=== PATIENT | female | born 1960 | race Caucasian/White ===

== ENCOUNTER 2024-03-21 00:34 | Day surgery (SDC) | payer BC, SELFPAY ==
--- NOTE | 2024-03-16 12:19 | PM.IMHP ---
H&P: HPI History of Present Illness Date/Time: 03/16/24 12:19 Chief Complaint: UUI Narrative: Urge incontinence. Successful interstim trial Review of Systems Review of Systems: All systems reviewed & are unremarkable except as noted in HPI and below Meds Home Medications and Allergies Allergies Allergy/AdvReac Type Severity Reaction Status Date / Time No Known Allergies Allergy Unverified 03/06/18 12:35 Exam Narrative: NAD normal breathing A+O x3 Assessment and Plan Assessment and plan (1) Urge incontinence: Code(s): N39.41 - Urge incontinence Status: Acute Assessment and Plan: interStim implant
--- NOTE | ~2024-03-21 | XR_ITS ---
EXAMINATION: XR fluoroscopy no charge DATE: 03/21/2024 10:18 INDICATION: Phase 2 neurostimulator insertion TECHNIQUE: 3 fluoroscopic images of the central pelvis were obtained during procedure performed by Dr Luisa Murguia. Radiologist was not present for the imaging or procedure. The amount of fluoroscopy time u sed during this procedure was 0.7 minutes. Total DAP was 0.264 mGym^2 COMPARISON: None. FINDINGS/IMPRESSION: Images demonstrate placement of sacral nerve root stimulator which appears to extend through the left S3 neural foramen. Correlate with procedure note for further detail. Reviewed, dictated and finalized at location A.
--- NOTE | 2024-03-21 07:17 | WPDHPUPDATE1 ---
History and Physical Update Update Date/Time: 03/21/24 07:17 History and Physical has been reviewed, including an updated exam of the patient. There are NO changes in the patient's condition. Risks, benefits, and alternatives have been discussed and questions answered. Patient agrees to proceed with procedure.
--- NOTE | 2024-03-21 07:18 | WPDHPUPDATE1 ---
History and Physical Update Update Date/Time: 03/21/24 07:18 History and Physical has been reviewed, including an updated exam of the patient. There are NO changes in the patient's condition. Risks, benefits, and alternatives have been discussed and questions answered. Patient agrees to proceed with procedure.
--- NOTE | 2024-03-21 07:21 | P.PNAN_ITS ---
Anes - Initial Pre Proc Eval Procedure: Operation Date: 03/21/24 09:45 Proposed Procedures p Neurostimulator Insertion Phase Two - Toribio Murguia MD Date/Time: 03/21/24 07:21 Surgeon: Toribio Murguia MD Pre Op Diagnosis: sensory urge incont Patient Data Age: 63 Gender: F Height: Weight: Allergies Allergy/AdvReac Type Severity Reaction Status Date / Time No Known Allergies Allergy Unverified 03/21/24 08:36 Home Medications Medication Instructions Recorded Confirmed Type amlodipine 5 mg tablet 5 mg PO DAILY 03/18/24 03/18/24 History atorvastatin 40 mg tablet 40 mg PO DAILY 03/18/24 03/18/24 History levothyroxine 100 mcg tablet 100 mcg PO DAILY 03/18/24 03/18/24 History metoprolol tartrate 25 mg tablet 25 mg PO DAILY 03/18/24 03/18/24 History biotin 10,000 mcg chewable tablet 10,000 mcg PO DAILY 03/21/24 03/21/24 History (Hair, Skin and Nails (biotin)) esomeprazole magnesium 20 mg 20 mg PO DAILY 03/21/24 03/21/24 History capsule,delayed release (Nexium) gabapentin 100 mg capsule 100 mg PO TID 03/21/24 03/21/24 History hydralazine 25 mg tablet 25 mg PO BID 03/21/24 03/21/24 History hydrocodone 5 mg-acetaminophen 325 1 tablet PO Q6H PRN pain #20 tabs 03/21/24 Rx mg tablet metformin 1,000 mg tablet 1,000 mg PO BID 03/21/24 03/21/24 History Patient hx anesthesia problems: none Family hx anesthesia problems: none Results Review: All pre-operative results and documents have been reviewed as part of the pre- operative evaluation. [facility] Past Medical History Medical History (Updated 03/21/24 @ 07:22 by Gustavo Benson DO) Hyperlipidemia Hypertension Hypothyroidism Social History Social History Smoking status: Never smoker Living arrangements: with family Spiritual care concerns: No Anes - Eval Final PreProcedure Day of Procedure 03/21/24 07:21 Patient weight: obese Heart: regular rate and rhythm Lungs: clear to auscultation Airway: Mallampati scale class II Neurological: alert and oriented Last oral intake: >/= 8 hours ASA classification: III Emergent: no Anesthetic plan: proceed Anesthesia type and monitoring: general GIVS and standard monitoring Results Review: All pre-operative results and documents have been reviewed as part of the pre- operative evaluation. Informed Consent: The patient's anesthetic plan and its attendant risks and benefits were discussed with the patient/family/POA. Questions were solicited and answers provided to the satisfaction of the patient/family/POA.
[2024-03-21 07:50] VITALS: BP 152/89; PULSE 65; RESP 18; TEMP 36.2; O2SAT 98
[2024-03-21 08:44] VITALS: BMI 34.5
--- NOTE | 2024-03-21 09:18 | ECG_ITS ---
Test Date: 2024-03-21 09:28:30 Measurements Intervals [place] Rate: 54 P: 52 [place]: 182 QRS: 17 QRSD: 94 T: 36 QT: 411 QTc: 390 Interpretive Statements SINUS BRADYCARDIA OTHERWISE NORMAL ELECTROCARDIOGRAM No previous ECG available for comparison Electronically Signed On 03-21-2024 12:55:01 CDT by Juan Antonio Meade M.D.
[2024-03-21] MEDS: LACTATED RINGERS 1,000 ML 30 ML IV CONT (09:30)
[2024-03-21 09:45] LABS: Glucose Point of Care 111 mg/dl (65-105)
[2024-03-21] MEDS: ceFAZolin 2 GM/D5W 50 ML 2 GM/50 ML BAG IVPB (09:51)
[2024-03-21 09:57] LABS: Anion Gap 7 mmol/L (4-12); Blood Urea Nitrogen 20 mg/dL (7-17); Calcium 9.4 mg/dL (8.4-10.2); Carbon Dioxide 29 mmol/L (22-30); Chloride 104 mmol/L (98-107); Estimated CRCL calculation 61 ml/min; Estimated Glomerular Filt Rate > 60; Glucose 108 mg/dL (65-110); Potassium 4.5 mmol/L (3.4-5.0); Sodium 140 mmol/L (137-145)
[2024-03-21] MEDS: BUPIVACAINE/EPINEPHRINE 0.5% 10 ML VIAL 30 ML INFILTRATE (10:07)
[2024-03-21 10:26] VITALS: BP 149/74; PULSE 74; RESP 16; O2SAT 97
--- NOTE | 2024-03-21 10:40 | P.OP_ITS ---
Procedure Note - Detailed Date of Procedure 03/21/24 Pre-op Diagnosis sensory urge incont Post-op Diagnosis Same Procedure Performed Placement of sacral lead, placement of implantable pulse generator, fluoroscopic guidance for needle placement Surgeon Toribio Murguia MD Anesthesia MAC and Local Indications This is a woman with urge incontinence. She has undergone a successful trial of sacral neuromodulation. She is here today for permanent implantation. She understands risks of bleeding, infection, lack of efficacy, need for revision and battery changes. She agrees to proceed Findings Uncomplicated InterStim placement Description of Procedure She was correctly identified. Informed consent obtained. She from the operating room. She was given monitored anesthesia care. She was placed in prone position. Lower back and buttock prepped draped sterile fashion. Time- out performed. I used fluoroscopy to locate my sacral landmarks in the AP and lateral intubation. Anesthetize the skin. I entered the S3 foramen on the patient's left. I monitored the needle fluoroscopy. I stimulated the needle and got appropriate Martiza and toe at a low threshold. I made a skin sagar. I placed a stylet. I then placed the lead into sheath. I then placed and deployed my lead. I again did this under fluoroscopy and it was done percutaneously. I again stimulated the lead. I got appropriate responses a low threshold. I anesthetized the skin over the site of the pulse generator. I incised the skin. I created subcutaneous pocket. I assured hemostasis. I tunneled the lead towards this pocket. The generator was opened. The generator was programmed. Appropriate connections were made. It was placed in the pocket. Impedances were checked and found to be normal. I assured hemostasis. I irrigated out all wounds. I closed subcutaneous tissues with 2-0 Vicryl. Skin with 4-0 Vicryl. Glue was applied. She was awakened transferred to PACU in stable condition. Implants InterStim device Estimated Blood Loss 5 Pathology None sent Complications No immediate complications Condition Stable Disposition PACU
[2024-03-21 10:55] VITALS: BP 146/59; PULSE 65; RESP 16
[2024-03-21 11:25] VITALS: BP 168/89; PULSE 59; RESP 16
== END 2024-03-21 11:51 | disposition home or self-care (01) ==
PROVIDERS: Anesthesiology; PCP Nurse Practitioner; Visit Provider Urology
PROC: (CPT 64561; principal; 2024-03-21 09:45)
DX: N39.41 Urge incontinence (principal); I10 Essential (primary) hypertension; E03.9 Hypothyroidism, unspecified; E78.5 Hyperlipidemia, unspecified; E66.9 Obesity, unspecified; Z68.34 Body mass index [BMI] 34.0-34.9, adult
CPT/HCPCS: 64561; 64590; 36415; 80048; 82948; 93005; 99199; C1767; C1778; C1787; J0690; J1100; J2250; J2405; J2704; J3010; J7120